=== PATIENT | male | born 1950 | race Caucasian/White ===

== ENCOUNTER 2023-09-13 19:50 | Emergency (ER) | payer MEDICARE, SELFPAY ==
[2023-09-13 20:28] VITALS: BP 119/95; PULSE 59; RESP 17; TEMP 36.8; O2SAT 95
[2023-09-14 00:17] LABS: Basophils Absolute Auto 0.1 K/mm3 (0.0-0.1); Basophils Percent Auto 0.6 % (0.2-1.2); Eosinophils Absolute Auto 0.3 K/mm3 (0-0.3); Hemoglobin 15.5 g/dL (14.0-18.0); Immature Granulocyte Absolute 0.04 K/mm3 (0.00-0.031); Immature Granulocyte Percent A 0.3 % (0-0.5); Lymphocytes Absolute Auto 2.49 K/mm3 (0.9-3.2); Lymphocytes Percent Auto 18.9 % (18.3-44.2); Mean Corpuscular Hemoglobin 30.4 pg (26-34); Mean Corpuscular Volume 92.2 fl (80-100); Mean Platelet Volume 10.3 fl (7.4-10.4); Monocytes Absolute Auto 1.9 K/mm3 (0.1-0.6); Monocytes Percent Auto 14.5 % (2.6-8.5); Neutrophils Absolute Auto 8.4 K/mm3 (1.3-6.7); Neutrophils Percent Auto 63.7 % (45.5-73.1); Platelet Count Result 268 k/mm3 (150-375); Red Cell Distribution Width 12.4 % (11.5-14.5); White Blood Count 13.1 K/mm3 (4.5-10.0)
[2023-09-14 00:27] LABS: INR 1.2; Prothrombin Time 15.4 Seconds (11.1-14.7)
[2023-09-14 00:29] LABS: Partial Thromboplastin Time 35.7 SECONDS (22.3-36.8)
[2023-09-14 00:36] LABS: Alanine Aminotransferase 29 U/L (6-50); Albumin Level 4.2 g/dL (3.5-5.1); Alkaline Phosphatase 75 U/L (38-126); Anion Gap 5 mmol/L (8-16); Aspartate Amino Transferase 28 U/L (17-59); Bilirubin,Total 1.1 mg/dL (0.2-1.3); Blood Urea Nitrogen 16 mg/dL (9-20); Calcium 10.4 mg/dL (8.4-10.2); Carbon Dioxide 31 mmol/L (22-30); Chloride 99 mmol/L (98-107); Estimated CRCL calculation 47 ml/min; Estimated Glomerular Filt Rate 54; Glucose 101 mg/dL (65-110); Sodium 135 mmol/L (137-145)
[2023-09-14 00:46] LABS: D Dimer 9.28 ug/mL (<0.48)
--- NOTE | 2023-09-14 00:48 | ED.GENADULT ---
HPI - General Adult General Chief complaint: Extremity Problem,Nontraumatic Stated complaint: left calf edema, hx of dvt Time Seen by Provider: 09/13/23 23:54 History of Present Illness HPI narrative: Patient is a 72-year-old gentleman who presents the emergency department with chief complaint of redness and swelling of his left Leg. Patient has prior history of DVT in the left lower extremity and was taken off Eliquis about 2 months ago. Patient denies shortness of breath denies chest pain. Related Data Allergies Allergy/AdvReac Type Severity Reaction Status Date / Time No Known Allergies Allergy Verified 09/13/23 23:45 Review of Systems Review of Systems: A 10 system review of systems was completed on the patient and is negative except for what is stated in the HPI. Nursing and ancillary documentation was reviewed. Exam Narrative: GENERAL: Well-appearing, well-nourished, and in no acute distress. HEAD: Normocephalic, atraumatic. EYES: PERRLA and EOMI. ENT: Nares clear, no rhinorrhea or epistaxis. Mucous membranes moist. NECK: Supple. CHEST: Clear to auscultation. No respiratory distress. HEART: Regular rate and rhythm. No murmur heard. Normal peripheral pulses. ABDOMEN: Soft, nontender, nondistended, normal active bowel sounds. EXTREMITIES: Normal range of motion. No edema. There is slight redness to the left calf SKIN: Warm, dry, no rash. NEURO: No focal deficits. Alert and oriented to baseline. PSYCH: Normal mood and affect. Course Vital Signs Vital signs: Vital Signs Temperature 36.8 C 09/13/23 20:28 Pulse Rate 59 L 09/13/23 20:28 Respiratory Rate 17 09/13/23 20:28 Blood Pressure 119/95 H 09/13/23 20:28 Pulse Oximetry 95 09/13/23 20:28 Oxygen Delivery Room Air 09/13/23 20:28 Temperature 36.8 C 09/13/23 20:28 Pulse Rate 59 L 09/13/23 20:28 Respiratory Rate 17 09/13/23 20:28 Blood Pressure 119/95 H 09/13/23 20:28 Pulse Oximetry 95 09/13/23 20:28 Oxygen Delivery Room Air 09/13/23 20:[address] [facility] Narrative Medical decision making narrative: Differential diagnoses include lower extremity edema, DVT Patient is currently showing no signs of pulmonary embolism White blood cell count and CBC are within normal limits. Platelet count was 268 electrolytes are within normal limits D-dimer was elevated at 9.28 INR is 1.2 The patient will be given a dose of Lovenox in the emergency department and will cover him for 24 hours patient will be scheduled for a 7:30 AM ultrasound with radiology Vital Signs Vital Signs: Vital Signs Temperature 36.8 C 09/13/23 20:28 Pulse Rate 59 L 09/13/23 20:28 Respiratory Rate 17 09/13/23 20:28 Blood Pressure 119/95 H 09/13/23 20:28 Pulse Oximetry 95 09/13/23 20:28 Oxygen Delivery Room Air 09/13/23 20:28 Temperature 36.8 C 09/13/23 20:28 Pulse Rate 59 L 09/13/23 20:28 Respiratory Rate 17 09/13/23 20:28 Blood Pressure 119/95 H 09/13/23 20:28 Pulse Oximetry 95 09/13/23 20:28 Oxygen Delivery Room Air 09/13/23 20:28 Lab Data 09/14/23 00:01 09/14/23 00:01 Labs: Lab Results 09/14/23 Range/Units 00:01 WBC 13.1 H (4.5-10.0) K/mm3 RBC 5.10 (4.6-6.20) M/mm3 Hgb 15.5 (14.0-18.0) g/dL Hct 47.0 (42.0-52.0) % MCV 92.2 (80-100) fl MCH 30.4 (26-34) pg MCHC 33.0 (32-36) g/dl RDW 12.4 (11.5-14.5) % Plt Count 268 (150-375) k/mm3 MPV 10.3 (7.4-10.4) fl Immature Gran % (Auto) 0.3 (0-0.5) % Neut % (Auto) 63.7 (45.5-73.1) % Lymph % (Auto) 18.9 (18.3-44.2) % [place] % (Auto) 14.5 H (2.6-8.5) % Eos % (Auto) 2.0 (0-4.4) % Baso % (Auto) 0.6 (0.2-1.2) % Lymph # (Auto) 2.49 (0.9-3.2) K/mm3 [place] # (Auto) 1.9 H (0.1-0.6) K/mm3 Eos # (Auto) 0.3 (0-0.3) K/mm3 Baso # (Auto) 0.1 (0.0-0.1) K/mm3 Abs Immat Gran (auto) 0.04 H (0.00-0.031) K/mm3 Absolute Neuts (auto) 8.4 H (1.3-6.7) K/mm
[2023-09-14] MEDS: ENOXAPARIN 100 MG/ML SYRINGE 89 MG SUB-Q (01:06)
[2023-09-14 01:11] VITALS: BP 112/81; PULSE 67; RESP 15; O2SAT 96
== END 2023-09-14 01:13 | disposition home or self-care (01) ==
PROVIDERS: Emergency Provider Emergency Medicine
DX: R60.0 Localized edema (principal); Z86.718 Personal history of other venous thrombosis and embolism
CPT/HCPCS: 36415; 80053; 85025; 85380; 85610; 85730; 93971; 96372; 99283; J1650

== ENCOUNTER 2023-09-14 07:56 | Outpatient (CLI) | payer MEDICARE, SELFPAY ==
--- NOTE | ~2023-09-14 | US_ITS ---
EXAMINATION:US venous doppler LE LT INDICATION:Leg edema TECHNIQUE: Multiple grayscale, color flow and Doppler images of the left lower extremity deep venous systems were obtained and reviewed. COMPARISON:No prior studies for comparison. FINDINGS: The common femoral, superficial femoral and popliteal veins demonstrate normal respiratory variation, augmentation and compressibility. Color flow is also seen within the posterior tibial, pe roneal, greater saphenous and profunda veins. IMPRESSION: 1: No lower extremity deep venous thrombosis. Reviewed, dictated and finalized at location B.
== END 2023-09-14 07:57 | disposition home or self-care (01) ==
PROVIDERS: PCP Family Medicine; Visit Provider Emergency Medicine
DX: R60.0 Localized edema (principal); Z86.718 Personal history of other venous thrombosis and embolism
CPT/HCPCS: 93971